=== PATIENT | female | born 1985 | race Two or more races ===

== ENCOUNTER 2016-12-02 04:20 | Inpatient (IN) | payer OTHER ==
[~2016-12-02] VITALS: Ht 167.6 cm; Wt 110.5 kg
[2016-12-02 04:33] VITALS: BP 130/93; PULSE 102; RESP 20
[2016-12-02] MEDS ORDERED: LACTATED RINGER'S 1,000 ML IV SCH (04:35)
[2016-12-02] MEDS ORDERED: PRENAT PO (04:38)
[2016-12-02] MEDS ORDERED: BUTORPHANOL 2 MG INJ IV PRN (05:00)
[2016-12-02] MEDS ORDERED: LACTATED RINGER'S 1,000 ML IV PRN (05:00)
[2016-12-02] MEDS ORDERED: OXYTOCIN 30 UNITS/LR 500 ML IV SCH ×2 (05:00)
[2016-12-02] MEDS ORDERED: MISOPROSTOL 200 MCG TAB PR PRN ×2 (05:00→07:00)
[2016-12-02] MEDS ORDERED: LIDOCAINE 1% (MPF) 30 ML INJ INJ PRN (05:00)
[2016-12-02] MEDS ORDERED: IBUPROFEN 600 MG TAB PO PRN (05:00)
[2016-12-02] MEDS ORDERED: CARBOPROST 250 MCG INJ IM PRN ×2 (05:00→07:00)
[2016-12-02] MEDS ORDERED: METHYLERGONOVINE 0.2 MG INJ IM PRN ×2 (05:00→07:00)
[2016-12-02] MEDS ORDERED: AMPICILLIN 2 GM/NS (PMX) 100 ML IV ONE (05:00)
[2016-12-02] MEDS ORDERED: OXYTOCIN 30 UNITS/LR 500 ML IV PRN ×2 (05:00→07:00)
--- NOTE | 2016-12-02 05:25 | TRIAGE ---
OB Triage Datetime Report Generated by CPN: 12/02/2016 05:24 Datetime: 12/02/2016 05:21 Assessment Type: Admission Assessment Vaginal Bleeding: None Maternal Assessment Level of Consciousness: Fully Conscious DTR's/Clonus: DTRs 2+; No Clonus Headache: Denies Blurred Vision: No Respiratory Effort: Unlabored; Regular Rhythm; Equal Expansion Breath Sounds, Left: Clear and Equal Breath Sounds, Right: Clear and Equal Nausea/Vomiting: Denies RUQ Epigastric Pain: Denies Lower Extremities Edema: None Degree: None Upper Extremities Edema: None Degree: None Facial Edema: None Fall Risk Assessment History of Falling: (0) No Secondary Diagnosis: (0) No Ambulatory Aid: (0) Bedrest/Nurse Assist IV Therapy: (0) No Gait: (0) Normal/Bedrest/Immobile Mental Status: (0) Oriented to Own Ability Fall Score: 0 Fall Risk Score Definition: No Risk: No action required Labor Evaluation Frequency: 6 Duration (sec)2399: 40-70 Quality: Strong Pattern: Normal: <= 5 Contractions in 10 Minutes Resting Tone Gratz: Relaxed Pain Assessment Pain Scale: 10 Pain Presence: Intermittent Pain Type: Contraction Pain Location: Abdomen Pain Goal: 0 Vaginal Exam Dilatation (cms): 4.5 Effacement (%): 80 Station: -2 Datetime: 12/02/2016 05:00 Monitor Mode: External Quality: Moderate Pattern: Normal: <= 5 Contractions in 10 Minutes Resting Tone Gratz: Relaxed Heart Rate FHR Baseline Rate: 150 Monitor Mode: External US Variability: Minimal - Undetectable to <=5 bpm Accelerations: 15X15 Decelerations: Early; Variable Category: Category II Datetime: 12/02/2016 04:31 EGA: 36.3 Arrived By: Ambulatory Arrived From: Home Datetime: 12/02/2016 04:30 Time of Arrival: 12/02/2016 04:14 Arrived By: Wheelchair Arrived From: Home Chief Complaint: UCs q5mins Movement: Present Contractions: Regular Time Contractions Began: 12/02/2016 02:30 Contractions: q5mins Rupture of Membranes: Denies Vaginal Bleeding: Small Vaginal Discharge: Present Recent Sexual Intercouse: Yes Abdominal Trauma: Not Applicable Patient Complaints: Contractions; Cramping Time Provider Notified: 12/02/2016 04:30 Provider Notified: Datetime: 12/02/2016 04:28 Vaginal Exam Dilatation (cms): 4.5 Effacement (%): 80 Station: -2 Exam By: LULA Zhang Membrane Status: Intact Vaginal Bleeding: None Cervix, Consistency: Soft Cervix, Position: Midposition Presentation 'A': Cephalic Datetime: 12/02/2016 04:26 Stage of : OB Triage Assessment Type: Triage Maternal Assessment Level of Consciousness: Fully Conscious DTR's/Clonus: DTRs 2+; No Clonus Headache: Denies Blurred Vision: No Respiratory Effort: Unlabored; Regular Rhythm; Equal Expansion Breath Sounds, Left: Clear and Equal Breath Sounds, Right: Clear and Equal Nausea/Vomiting: Denies RUQ Epigastric Pain: Denies Lower Extremities Edema: None Degree: None Upper Extremities Edema: None Degree: None Facial Edema: None Temperature Route: Oral Fall Risk Assessment History of Falling: (0) No Secondary Diagnosis: (0) No Ambulatory Aid: (0) Bedrest/Nurse Assist IV Therapy: (0) No Gait: (0) Normal/Bedrest/Immobile Mental Status: (0) Oriented to Own Ability Fall Score: 0 Fall Risk Score Definition: No Risk: No action required Pain Assessment Pain Scale: 10 Pain Presence: Intermittent Pain Type: Cramping; Contraction Pain Location: Abdomen; Back Pain Relief Measures: Comfort Measures
[2016-12-02 06:04] LABS: INR 1.02; PARTIAL THROMBOPLASTIN TIME 26.9 Sec (25.0-35.0); PROTIME 13.4 Sec (12.2-14.2)
[2016-12-02 06:09] LABS: ALBUMIN 3.5 g/dl (3.3-4.9)
[2016-12-02 06:10] LABS: POTASSIUM 3.9 mmol/L (3.5-5.1)
[2016-12-02 06:12] LABS: CREATININE 0.58 mg/dl (0.44-1.00)
[2016-12-02 06:13] LABS: ALBUMIN/GLOBULIN RATIO 0.89; TOTAL PROTEIN 7.4 g/dl (6.1-8.1); URIC ACID 4.6 mg/dl (3.1-7.9)
[2016-12-02 06:18] LABS: BASOPHILS % 0.2 % (0.0-2.0); EOSINOPHILS % 0.4 % (0.0-7.0); HEMATOCRIT 37.3 % (37.0-47.0); HEMOGLOBIN 12.8 g/dl (12.0-16.0); LYMPHOCYTES # 2.7 10^3/ul (0.8-2.9); LYMPHOCYTES % 21.6 % (15.0-51.0); MEAN CORPUSCULAR HEMOGLOBIN 30.8 pg (29.0-33.0); MEAN CORPUSCULAR HGB CONC 34.3 g/dl (32.0-37.0); MEAN CORPUSCULAR VOLUME 89.6 fl (82.0-101.0); MEAN PLATELET VOLUME 9.3 fl (7.4-10.4); MONOCYTE # 0.6 10^3/ul (0.3-0.9); MONOCYTES % 4.7 % (0.0-11.0); NEUTROPHIL # 9.2 10^3/ul (1.6-7.5); NEUTROPHILS % 73.1 % (39.0-77.0); PLATELET COUNT 237 10^3/UL (140-440); RED BLOOD COUNT 4.16 10^6/ul (4.20-5.40); UNCORRECTED WBC 12.5 10^3/ul (4.8-10.8); WHITE BLOOD COUNT 12.5 10^3/ul (4.8-10.8)
[2016-12-02 06:42] LABS: CONDITION 1
[2016-12-02 06:48] LABS: ADD UMIC YES; URINE BILIRUBIN (Dip) NEGATIVE (NEGATIVE); URINE BLOOD (Dip) 1+ (NEGATIVE); URINE COLOR LT. YELLOW (YELLOW); URINE GLUCOSE (Dip) NEGATIVE (NEGATIVE); URINE KETONES (Dip) NEGATIVE (NEGATIVE); URINE LEUKOCYTE ESTERASE (Dip) NEGATIVE (NEGATIVE); URINE NITRITE (Dip) NEGATIVE (NEGATIVE); URINE TOTAL PROTEIN (Dip) NEGATIVE (NEGATIVE); URINE UROBILINOGEN (Dip) 0.2 E.U./dL (0.1-1.0)
[2016-12-02] MEDS: LACTATED RINGER'S 1,000 ML IV* SCH ×3 (06:49→22:49)
--- NOTE | 2016-12-02 06:56 | LDN ---
Date/Time of Note Date/Time of Note DATE: 12/02/16 TIME: 06:53 Delivery Summary I was called shortly after the patient was admitted through triage due to active labor for delivery. Patient had urge to push. Attendance for delivery. Baby was a 36 week care that delivered with maternal pushing after delivery of the head the whole body was delivered immediately. Baby was placed on the maternal abdomen and nose and mouth were suctioned. After a delay of 30 seconds the cord was clamped and cut. Then cord blood was obtained. Then shortly after that the placenta was delivered by gentle traction with maternal pushing effort. Cord was three-vessel. Placenta was evaluated and was complete. Fundus was firm. Hemostasis was complete. There was a first-degree laceration superficial mucosal in the mucosa of the vestibule below the urethra that was not bleeding and did not require any suture. EBL 200 cc. Baby was a female 9 and 9 Perineum intact?: No Perineal laceration: 1 Perineal laceration repair: First-degree superficial mucosal laceration in the mucosa of the visible below the urethra that was not bleeding and did not require any suture. Anesthesia type: None Sponge & Needle done & correct: Yes All needle counts correct: Yes Any foreign bodies felt in the: No Problems: Infant Delivery Information Sex Infant Sex: female Apgars 1 Minute: 9 5 Minute: 9 Suctioning Nose & mouth suctioned at arlene: No Delee suction performed: No Umbilical Cord Umbilical cord with: 3 Vessels Cord presentations: no nuchal cord Cord Blood was obtained: Yes Mother & Baby Disposition Disposition There was no time to suction the mouth and nose due to precipitous delivery No records are available. GBS status was unknown. Due to precipitous delivery there was no time an opportunity to give the patient GBS prophylaxis. MEJIA LAWSON MD Dec 02, 2016 06:56
[2016-12-02] MEDS ORDERED: WITCH HAZEL/GLYCERIN PAD PR PRN (07:00)
[2016-12-02] MEDS ORDERED: ONDANSETRON 4 MG INJ IV PRN (07:00)
[2016-12-02] MEDS ORDERED: morphine 2 MG INJ IV PRN (07:00)
[2016-12-02] MEDS ORDERED: DIPHENHYDRAMINE 25 MG CAP PO PRN (07:00)
[2016-12-02] MEDS ORDERED: METHYLERGONOVINE 0.2 MG TAB PO PRN (07:00)
[2016-12-02] MEDS ORDERED: ACETAMINOPHEN 325 MG TAB PO PRN (07:00)
[2016-12-02] MEDS ORDERED: LANOLIN 7 GM TUBE TOP PRN (07:00)
[2016-12-02] MEDS ORDERED: ZOLPIDEM 5 MG TAB PO PRN (07:00)
[2016-12-02 07:03] LABS: BARBITURATES Negative (NEGATIVE); BENZODIAZEPINES Negative (NEGATIVE); CANNABINOIDS Negative (NEGATIVE); COCAINE Negative (NEGATIVE); OPIATES Negative (NEGATIVE)
[2016-12-02] MEDS: OXYTOCIN 30 UNITS/LR 500 ML IV SCH ×5 (07:37→23:25)
[2016-12-02 07:50] LABS: BACTERIA,URINE RARE
[2016-12-02] MEDS ORDERED: AMPICILLIN 1 GM/NS (PMX) 50 ML IV SCH (09:00)
[2016-12-02 09:45] VITALS: BP 125/62; PULSE 98; RESP 18
[2016-12-02 12:00] VITALS: BP 118/68; PULSE 100; RESP 16
[2016-12-02] MEDS: MULTIVIT/MIN/FOLATE/IRON/PREN TAB PO SCH (12:26)
[2016-12-02] MEDS: IBUPROFEN 600 MG TAB PO SCH ×2 (12:26→17:42)
[2016-12-02] MEDS: SENNA/DOCUSATE NA (8.6MG/50MG) TAB PO SCH ×2 (12:26→21:33)
[2016-12-02 15:30] VITALS: BP 111/67; PULSE 87; RESP 18
[2016-12-02 20:00] VITALS: BP 114/61; PULSE 70; RESP 20
[2016-12-03] MEDS: IBUPROFEN 600 MG TAB PO SCH ×5 (00:02→23:48)
[2016-12-03] MEDS: OXYTOCIN 30 UNITS/LR 500 ML IV SCH ×6 (03:25→23:25)
[2016-12-03 04:38] VITALS: BP 124/64; PULSE 72; RESP 20
[2016-12-03] MEDS: LACTATED RINGER'S 1,000 ML IV* SCH ×3 (06:49→22:49)
[2016-12-03 07:42] LABS: BASOPHILS % 0.2 % (0.0-2.0); EOSINOPHILS # 0.1 10^3/ul (0.0-0.5); EOSINOPHILS % 0.7 % (0.0-7.0); HEMATOCRIT 34.2 % (37.0-47.0); HEMOGLOBIN 11.8 g/dl (12.0-16.0); LYMPHOCYTES % 29.5 % (15.0-51.0); MEAN CORPUSCULAR HEMOGLOBIN 30.9 pg (29.0-33.0); MEAN CORPUSCULAR HGB CONC 34.5 g/dl (32.0-37.0); MEAN CORPUSCULAR VOLUME 89.3 fl (82.0-101.0); MEAN PLATELET VOLUME 9.2 fl (7.4-10.4); MONOCYTE # 0.5 10^3/ul (0.3-0.9); MONOCYTES % 4.9 % (0.0-11.0); NEUTROPHIL # 6.5 10^3/ul (1.6-7.5); NEUTROPHILS % 64.7 % (39.0-77.0); PLATELET COUNT 230 10^3/UL (140-440); RED BLOOD COUNT 3.83 10^6/ul (4.20-5.40); UNCORRECTED WBC 10.1 10^3/ul (4.8-10.8); WHITE BLOOD COUNT 10.1 10^3/ul (4.8-10.8)
[2016-12-03 07:45] VITALS: BP_SYST 113; BP_SYST 120; BP_DIAS 57; BP_DIAS 59; PULSE 62; PULSE 80; RESP 18
[2016-12-03 07:55] LABS: CONDITION 1
[2016-12-03] MEDS: MULTIVIT/MIN/FOLATE/IRON/PREN TAB PO SCH (10:16)
[2016-12-03] MEDS: SENNA/DOCUSATE NA (8.6MG/50MG) TAB PO SCH ×2 (10:16→21:46)
[2016-12-03] MEDS ORDERED: INFLUENZA VIRUS VACCINE 0.5 ML SYG IM* ONE (11:30)
--- NOTE | 2016-12-03 13:22 | PN ---
Date/Time of Note Date/Time of Note DATE: 12/03/16 TIME: 13:21 OB Subjective Subjective Subjective Post day 1 Vital sign stable afebrile abdomen soft uterus firm lochia normal extremity normal Laboratory Tests Test 12/03/16 06:25 Basophils # 0.010^3/ul Basophils % 0.2% Eosinophils # 0.110^3/ul Eosinophils % 0.7% Hematocrit 34.2% Hemoglobin 11.8g/dl Lymphocytes # 3.010^3/ul Lymphocytes % 29.5% Mean Corpuscular Hemoglobin 30.9pg Mean Corpuscular Hemoglobin Concent 34.5g/dl Mean Corpuscular Volume 89.3fl Mean Platelet Volume 9.2fl Monocytes # 0.510^3/ul Monocytes % 4.9% Neutrophils # 6.510^3/ul Neutrophils % 64.7% Nucleated Red Blood Cells # 0.010^3/ul Nucleated Red Blood Cells % 0.0/100WBC Platelet Count 04138^3/UL Red Blood Count 3.8310^6/ul Red Cell Distribution Width 13.0% White Blood Count 10.110^3/ul Current Medications Medications (Trade) Dose Ordered Sig/Ivan Route PRN Reason Start Time Stop Time Status Last Admin Dose Admin Lactated Ringer's 1,000 ml @ 125 mls/hr Q8H IV 12/02/16 04:35 12/02/16 06:52 DC 12/02/16 05:39 Ampicillin 100 ml @ 100 mls/hr ONCE ONCE IV 12/02/16 05:00 12/02/16 05:59 DC 12/02/16 05:35 Ampicillin (Ampicillin 1 Gm/ NS (Pmx)) 50 ml @ 100 mls/hr Q4H IV 12/02/16 09:00 12/02/16 09:00 DC Butorphanol Tartrate (Stadol) 2 mg Q2H PRN IV PAIN 12/02/16 05:00 12/02/16 06:53 DC Lidocaine 30 ml 30 ml ONCE PRN INJ EPISIOTOMY/TEARING 12/02/16 05:00 12/02/16 06:53 DC Oxytocin/Lactated Ringer's 500 ml @ 125 mls/hr ONCE -MAY REPEAT X1 IV 12/02/16 05:00 12/02/16 06:53 DC Oxytocin/Lactated Ringer's 500 ml @ 125 mls/hr ONCE IV 12/02/16 05:00 12/02/16 06:53 DC Ibuprofen 600 mg 600 mg ONCE PRN PO Mild Pain (Pain Score 1-3) 12/02/16 05:00 12/02/16 06:53 DC Lactated Ringer's 1,000 ml @ 2,000 mls/hr Q30M PRN IV PRE-EPIDURAL BOLUS 12/02/16 05:00 12/02/16 06:53 DC Oxytocin/Lactated Ringer's 500 ml @ 0 mls/hr ONCE PRN IV For Hemorrhage Management 12/02/16 05:00 12/02/16 06:53 DC Methylergonovine Maleate (Methergine) 0.2 mg ONCE PRN IM VAGINAL BLEEDING 12/02/16 05:00 12/02/16 06:53 DC Carboprost Tromethamine (Hemabate) 250 mcg ONCE PRN IM VAGINAL BLEEDING 12/02/16 05:00 12/02/16 06:53 DC Misoprostol 1000 mcg 1,000 mcg ONCE PRN ME VAGINAL BLEEDING 12/02/16 05:00 12/02/16 06:52 DC Lactated Ringer's (Lr) 1,000 ml @ 125 mls/hr Q8H IV* 12/02/16 06:49 Methylergonovine Maleate (Methergine) 0.2 mg Q6H PRN PO VAGINAL BLEEDING 12/02/16 07:00 Morphine Sulfate (morphine) 1 mg Q3 PRN IV PAIN LEVEL 6-10 12/02/16 07:00 Ibuprofen (Motrin) 600 mg Q6 PO 12/02/16 07:00 12/03/16 11:40 Ondansetron HCl (Zofran Inj) 4 mg Q6H PRN IV NAUSEA AND/OR VOMITING 12/02/16 07:00 Diphenhydramine HCl (Benadryl) 25 mg Q6H PRN PO PRURITUS 12/02/16 07:00 Zolpidem Tartrate (Ambien) 5 mg QHS PRN PO INSOMNIA 12/02/16 07:00 Senna/Docusate Sodium (Senokot-S) 1 tab BID PO 12/02/16 09:00 12/03/16 10:16 Witch Kasey/ Glycerin (Tucks Pads) 1 pad BEDSIDE MEDICATION PRN ME HEMORRHOID/EPISIOTMY PAIN 12/02/16 07:00 12/02/16 12:26 Lanolin ([id number]) 1 applic BEDSIDE MEDICATION PRN TOP BEDSIDE FOR GALILEA TO NIPPLES 12/02/16 07:00 12/02/16 12:26 Measles/Mumps/ Rubella Vaccine Live (Mmr Ii Vaccine) 0.5 ml ONCE ONCE SC* 12/04/16 09:00 12/04/16 09:01 Diphtheria/ Tetanus/Acell Pertussis (Adacel) 0.5 ml ONCE ONCE IM* 12/04/16 09:00 12/04/16 09:01 Varicella Virus Vaccine Live (Varivax Vaccine With Diluent) 1,350 unit ONCE ONCE SC* 12/04/16 09:00 12/04/16 09:01 Acetaminophen 650 mg 650 mg Q4H PRN PO ELEVATED TEMPERATURE 12/02/16 07:00 Oxytocin/Lactated Ringer's 500 ml @ 0 mls/hr ONCE PRN IV For Hemorrhage Management 12/02/16 07:00 Methylergonovine Maleate (Methergine) 0.2 mg ONCE PRN IM VAGINAL BLEEDING 12/02/16 07:00 Carboprost Tromethamine (Hemabate) 250 mcg ONCE PRN IM VAGINAL BLEEDING 12/02/16 07:00 Misoprostol (Cytotec) 1,000 mcg ONCE PRN ME VAGINAL BLEEDING 12/02/16 07:00 Prenat Multivit/ Ringo/Iron/Folic Ac 1 tab 1 tab DAILY PO 12/02/16 09:00 12/03/16 10:16 Oxytocin/Lactated Ringer's 500 ml @ 125 mls/hr Q4H IV 12/02/16 07:25 12/02/16 07:37 Influenza Virus Vaccine (Fluzone) 0.5 ml ONCE ONCE IM* 12/03/16 11:30 12/03/16 11:31 DC 12/03/16 10:18 SHASHA RAMIREZ MD Dec 03, 2016 13:22
[2016-12-03 15:50] VITALS: BP 106/80; PULSE 71; RESP 19
[2016-12-03 20:00] VITALS: BP 109/66; PULSE 74; RESP 20
[2016-12-04 03:22] VITALS: BP 120/61; PULSE 70; RESP 18
[2016-12-04] MEDS: OXYTOCIN 30 UNITS/LR 500 ML IV SCH (03:25)
[2016-12-04] MEDS: IBUPROFEN 600 MG TAB PO SCH ×2 (05:30→12:46)
[2016-12-04] MEDS: LACTATED RINGER'S 1,000 ML IV* SCH (06:49)
[2016-12-04 08:50] VITALS: BP 105/58; PULSE 76; RESP 19
[2016-12-04] MEDS ORDERED: VARICELLA VACCINE LIVE/PF 1,350 UNIT/0.5 ML ML SC* ONE (09:00)
[2016-12-04] MEDS ORDERED: MEASLES,MUMPS,RUBELLA VACCINE INJ SC* ONE (09:00)
[2016-12-04] MEDS ORDERED: DIPHTH/TET/ACEL PERTUSS (ADULT) 0.5 ML VIAL IM* ONE (09:00)
[2016-12-04] MEDS: SENNA/DOCUSATE NA (8.6MG/50MG) TAB PO SCH (09:05)
[2016-12-04] MEDS: MULTIVIT/MIN/FOLATE/IRON/PREN TAB PO SCH (09:05)
--- NOTE | 2016-12-04 11:42 | PD.PPDC ---
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
--- NOTE | 2016-12-04 11:43 | DS ---
Date/Time of Note Date/Time of Note DATE: 12/04/16 TIME: 11:42 Obstetrical Discharge Record Final Diagnosis Final Diagnosis: Term delivered Vaginal Delivery Obstetrical Delivery: Spontaneous Condition on Discharge Physical Assessment Last Vitals: Vital sign stable Abdomen soft uterus firm lochia normal extremity normal home instructions given recommended appointment in 2 weeks at the clinic Voiding: Yes Bowel Movement: Yes Breast: Soft, non-tender, Filling Fundus: Firm Calf Tenderness: No Patient Condition: Good SHASHA RAMIREZ MD Dec 04, 2016 11:43
== END 2016-12-04 13:55 | disposition home or self-care (01) | DRG 775 ==
LOC: L-D 04:20 → OBT 04:20 → L-D 04:30 → PP1 09:42
PROVIDERS: ADMIT Obstetrics & Gynecology; ATTEND Obstetrics & Gynecology
PROC: 10E0XZZ Delivery of Products of Conception, External Approach (ICD-10-PCS; principal; 2016-12-02)
PROC: 0HQ9XZZ Repair Perineum Skin, External Approach (ICD-10-PCS; 2016-12-02)
PROC: 3E00X4Z Introduction of Serum, Toxoid and Vaccine into Skin and Mucous Membranes, External Approach (ICD-10-PCS; 2016-12-04)
DX: O60.14X0 Preterm labor third trimester with preterm delivery third trimester, not applicable or unspecified (principal); O70.0 First degree perineal laceration during delivery; Z23 Encounter for immunization; Z3A.36 36 weeks gestation of pregnancy; Z37.0 Single live birth
CPT/HCPCS: 36415; 80053; 80307; 81001; 81003; 84560; 85025; 85610; 85730; 86592; 86900; 86901; 87340; 90686; 90715; 90716; G0463; J0290; J2590; J7120